=== PATIENT | female | born 1995 | race Caucasian/White ===

== ENCOUNTER 2021-04-25 21:54 | Emergency (ER) | payer BC ==
[~2021-04-25] VITALS: Ht 162.6 cm; Wt 81.6 kg
[2021-04-25 22:12] VITALS: BP_SYST 137
--- NOTE | 2021-04-25 23:32 | NUR ---
Per bond clerk, pt LWBS.
== END 2021-04-25 23:32 | disposition left against medical advice (07) ==
LOC: SED 21:54
DX: R56.9 Unspecified convulsions (principal); Z53.21 Procedure and treatment not carried out due to patient leaving prior to being seen by health care provider

== ENCOUNTER 2021-07-12 22:23 | Emergency (ER) | payer BC ==
[~2021-07-12] VITALS: Ht 162.6 cm; Wt 83.0 kg
[2021-07-12 22:46] VITALS: BP_SYST 119
--- NOTE | 2021-07-12 22:47 | NUR ---
Patient c/o generalized abdominal pain for 2 hours. Patient denies any urinary problem, dysuria or hematuria, denies nausea or vomiting. Patient states the pain scale is about a 9/10. Patient was brought in by private auto. Patient has no elevating factors at this time. Patient denies having any diarrhea, no fever or chills. She denies having any coffee-ground emesis. Patient breathing easy not in distress. Patient ambulates with steady gait.
--- NOTE | 2021-07-12 22:48 | NUR ---
Patient triaged and placed in waiting room. VS checked and patient appears in no acute distress at this time. Accompanied by self , awaiting available bed, and MD notified of need for MSE.
--- NOTE | 2021-07-12 23:36 | NUR ---
ER in triage examining patient.
[2021-07-13 00:01] LABS: BILIRUBIN,URINE NEGATIVE (NEGATIVE); BLOOD, URINE 2+ (NEGATIVE); CLARITY/URINE CLEAR (CLEAR); COLOR,URINE YELLOW (YELLOW); GLUCOSE,URINE NEGATIVE (NEGATIVE); KETONES,URINE NEGATIVE (NEGATIVE); LEUKOCYTE ESTERASE ,URINE NEGATIVE (NEGATIVE); NITRITE, URINE NEGATIVE (NEGATIVE); PH,URINE 5.5 (5.0-8.0); PROTEIN URINE NEGATIVE (NEGATIVE); UROBILINOGEN,URINE 0.2 (0.2-1.0)
[2021-07-13 00:13] LABS: BACTERIA,URINE FEW /HPF (None Seen); MUCUS,URINE None Seen /LPF (None Seen); RBC,URINE NONE SEEN /HPF (0-3); WBC,URINE 0-3 /HPF (0-3)
--- NOTE | 2021-07-13 01:15 | NUR ---
Patient ambulatory to bed hallway 1 for evaluation and treatment
[2021-07-13] MEDS ORDERED: KETOROLAC TROMETHAMINE 30 MG VIAL IVP ONE (01:45)
[2021-07-13] MEDS ORDERED: NACL 0.9% 1,000 ML IV ONE (01:45)
[2021-07-13 02:04] LABS: CALCIUM 8.9 mg/dL (8.4-11.0); CREATININE 0.79 mg/dL (0.55-1.30); POTASSIUM 4.4 mmol/L (3.5-5.1)
[2021-07-13 02:10] LABS: ALBUMIN 3.7 g/dL (3.4-4.8); TOTAL BILIRUBIN 0.2 mg/dL (0.0-1.0)
[2021-07-13 03:09] LABS: BASOPHILS # (AUTO) 0.1 K/uL (0.0-0.2); BASOPHILS % (AUTO) 0.4 % (0.0-2.0); EOSINOPHILS % (AUTO) 0.2 % (0.0-4.0); HEMATOCRIT 39.9 % (36-48); HEMOGLOBIN 13.3 g/dL (12.0-16.0); LYMPHOCYTES # (AUTO) 1.9 K/uL (1.0-5.5); LYMPHOCYTES % (AUTO) 11.7 % (20.5-51.5); MEAN CORPUSCULAR HEMOGLOBIN 30 pg (27-31); MEAN CORPUSCULAR HGB CONC 33 % (32-36); MEAN CORPUSCULAR VOLUME 91 fL (79.0-98.0); MONOCYTES # (AUTO) 0.7 K/uL (0.0-1.0); MONOCYTES % (AUTO) 4.6 % (1.7-9.3); NEUTROPHILS # (AUTO) 13.3 K/uL (1.8-7.7); NEUTROPHILS % (AUTO) 83.1 % (40.0-70.0); PLATELET COUNT (AUTO) 377 K/uL (130-430); RED BLOOD CELL COUNT(AUTO) 4.38 MIL/uL (4.2-6.2); RED CELL DISTRIBUTION WIDTH 13.4 % (9.0-15.0)
[2021-07-13] MEDS ORDERED: KETOROLAC TROMETHAMINE 30 MG VIAL ONE (03:47)
[2021-07-13] MEDS ORDERED: FAMO40TA71 PO (04:03)
[2021-07-13 04:05] VITALS: BP_SYST 110
== END 2021-07-13 04:05 | disposition home or self-care (01) ==
LOC: SED 22:23
DX: K29.70 Gastritis, unspecified, without bleeding (principal); Z79.899 Other long term (current) drug therapy
CPT/HCPCS: 36415; 74176; 76376; 80053; 81000; 81025; 83690; 85025; 96374; 99284; J1885; 99285